=== PATIENT | male | born 1995 | race Caucasian/White ===

== ENCOUNTER 2018-08-16 09:20 | Emergency (ER) | payer OTHER, SELFPAY ==
[2018-08-16] MEDS ORDERED: Lidocaine 2% w/Epinephrine 1:200K 20 ML VIAL ONE (10:03)
--- NOTE | 2018-08-16 10:19 | RAD ---
Exam:Left tibia fibula 2 views HISTORY: Pain. Injury. COMPARISON: None FINDINGS: Subcutaneous air likely due to soft tissue injury. No radiopaque foreign body. No fracture. IMPRESSION: 1. No fracture 2. Subcutaneous air due to soft tissue injury. No radio opaque foreign body.
[2018-08-16] MEDS ORDERED: Triple Antibiotic Oint 1 GM Packet ONE (10:39)
[2018-08-17] MEDS ORDERED: Sodium Chloride Irrig Solution 250 ML BOT ONE (12:00)
== END 2018-08-16 10:48 | disposition home or self-care (01) ==
LOC: MADERS 09:20
DX: S81.812A Laceration without foreign body, left lower leg, initial encounter (principal); W26.8XXA Contact with other sharp object(s), not elsewhere classified, initial encounter
CPT/HCPCS: 12002